=== PATIENT | female | born 1950 | race Caucasian/White ===

== ENCOUNTER 2017-04-05 08:35 | Observation (INO) | payer BC ==
[~2017-04-05] VITALS: Ht 162.6 cm; Wt 76.7 kg
[2017-04-05] VITALS (7 sets, daily range): BP systolic 128–143; BP diastolic 75–82; PULSE 58–70; TEMP 36.6; O2SAT 94–98; Ht 162.6 cm; Wt 76.7 kg
[~2017-04-05 08:35] MED LIST: EFFSR150 PO; LRT5 PO
[2017-04-05] MEDS ORDERED: SODIUM CHLORIDE 0.9% 500ML 500 ML IV STA (08:49)
[2017-04-05] MEDS ORDERED: EFFSR/75 PO (08:52)
[2017-04-05] MEDS ORDERED: ASPI81TA28 PO (08:52)
[2017-04-05] MEDS ORDERED: CALC600T9 PO (08:52)
[2017-04-05 08:57] LABS: BASO % 0.9 %; BASO ABS # 0.06 K/uL (0-0.2); COMPLETE YES; EOS % 3.9 %; IG% 0.1 %; LYMPH % 27.1 %; LYMPH ABS # 1.82 K/uL (1.2-3.4); MEAN CELL VOLUME 90.7 fL (80-100); MEAN CORPUSCULAR HEMOGLOBIN 30.5 pg (25-34); MEAN CORPUSCULAR HGB CONC 33.6 g/dl (32-36); MEAN PLATELET VOLUME 9.1 fL (7.4-10.4); MONO % 3.4 %; NEUT % 64.6 %; PLATELET COUNT 242 K/uL (130-400); RED BLOOD COUNT 4.85 M/uL (4.2-5.4); WHITE BLOOD COUNT 6.71 K/uL (4.8-10.8)
[2017-04-05 09:04] LABS: CALCIUM 9.3 mg/dl (8.5-10.1); CREATININE 1.2 mg/dl (0.60-1.20); POTASSIUM 3.5 mmol/L (3.5-5.1)
[2017-04-05 09:09] LABS: ALB/GLOB RATIO 1.1 (0.9-2)
--- NOTE | 2017-04-05 09:11 | EMERGENCY ROOM VISIT NOTE ---
History First contact with patient: 08:49 Chief Complaint: NAUSEA Stated Complaint: NAUSEA, DIZZY & FAINT Nursing Triage Summary: Nausea, lightheaded. History of Present Illness The patient is a 66 year old female who presents to the Emergency Room with complaints of palpitations and diaphoresis. Came on while walking, sudden onset palpitations, racing heart rate, had to sit down, associated chest pain, sweating (throughout) and nausea (for 1 minute). No shortness of breath. No loss of consciousness. No current chest pain. Did not take any medications. She didn't eat breakfast but usually skips breakfast and is fine. She has similar palpitations over at least the last 2 years. Last one was 2 days ago. Lately they have starting to come back but she can "get herself out of it" using ice on wrist and deep breaths. It usually lasts for 2 minutes. This is the first time with associated diaphoresis. No association to food or exertion. She walks one mile in the morning on most days of the week without any chest pain or shortness of breath. Review of Systems See HPI for pertinent positives & negatives. A total of 10 systems reviewed and were otherwise negative. 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) Current/Historical Medications Scheduled Aspirin (Aspirin Ec), 81 MG PO DAILY Calcium Carbonate-Vitamin D (Calcium + D), 1 TAB PO DAILY Venlafaxine HCl (Venlafaxine HCl ER), 150 MG PO DAILY Scheduled PRN Lorazepam (Lorazepam), 1 TAB PO DAILY PRN for Anxiety Allergies Coded Allergies: No Known Allergies (Unverified , 04/05/17) Physical Exam Vital Signs Date Time Temp Pulse Resp B/P (MAP) Pulse Ox O2 Delivery O2 Flow Rate FiO2 04/05/17 13:11 60 20 133/69 98 04/05/17 12:50 96 Room Air 04/05/17 12:43 67 18 122/79 96 Room Air 04/05/17 12:33 64 16 158/83 95 Room Air 04/05/17 12:03 62 20 118/75 99 Room Air 04/05/17 10:45 62 20 124/78 98 Room Air 04/05/17 10:00 62 20 100/68 97 Room Air 04/05/17 09:36 79 16 113/74 96 Room Air 04/05/17 09:15 85 16 126/82 95 Room Air 04/05/17 08:41 96 Room Air 04/05/17 08:40 93 04/05/17 08:37 36.7 104 20 141/79 97 Room Air Physical Exam VITAL SIGNS: were reviewed as above GENERAL: no acute distress SKIN: Warm dry and pink, no rashes HEAD: Normocephalic and atraumatic EYES: extraocular muscles intact, pupils equal and reactive to light OROPHARYNX: non erythematous, clear and moist NECK: Supple, no adenopathy LUNGS: No respiratory distress, clear to auscultation, no accessory muscle use HEART: Regular rate and rhythm, heart sounds 1+2, no murmurs, peripheral cap refill <2s ABDOMEN: Soft and nontender, bowel sounds normal EXTREMITIES: Warm and well perfused, no calf tenderness/swelling, no pedal edema. NEUROLOGICALLY: Awake alert and oriented without focal deficit. Cranial nerves 2 -12 intact. There is no facial droop. Speech is clear. Vision is grossly normal. MUSCULOSKELETAL: Good muscle tone. No evidence of trauma Medical Decision & Procedures ER Provider Diagnostic Interpretation: SINGLE VIEW CHEST CLINICAL HISTORY: Atypical chest pain. FINDINGS: An AP, portable, upright chest radiograph is obtained. No prior studies are available for comparison at the time of dictation. The examination is degraded by portable technique and patient rotation. The cardiomediastinal silhouette is unremarkable. There is minimal left basilar atelectasis. The lungs and pleural spaces are otherwise clear. No pneumothorax is seen. The skeletal structures are osteopenic. The bony thorax is grossly intact. IMPRESSION: No acute cardiopulmonary abnormality. Electronically signed by: Dimitris Mccabe M.D. 04/05/2017 10:59 AM Dictated Date/Time: 04/05/2017 10:58 AM Laboratory Results 04/05/17 08:11 Red Blood Count 4.85, Mean Corpuscular Volume 90.7, Mean Corpuscular Hemoglobin 30.5, Mean Corpuscular Hemoglobin Concent 33.6, Mean Platelet Volume 9.1, Neutrophils (%) (Auto) 64.6, Lymphocytes (%) (Auto) 27.1, Monocytes (%) (Auto) 3.4, Eosinophils (%) (Auto) 3.9, Basophils (%) (Auto) 0.9, Neutrophils # (Auto) 4.33, Lymphocytes # (Auto) 1.82, Monocytes # (Auto) 0.23, Eosinophils # (Auto) 0.26, Basophils # (Auto) 0.06 04/05/17 08:11 Test 04/05/17 08:11 04/05/17 11:27 04/05/17 12:30 White Blood Count 6.71 K/uL (4.8-10.8) Red Blood Count 4.85 M/uL (4.2-5.4) Hemoglobin 14.8 g/dL (12.0-16.0) Hematocrit 44.0 % (37-47) Mean Corpuscular Volume 90.7 fL (80-100) Mean Corpuscular Hemoglobin 30.5 pg (25-34) Mean Corpuscular Hemoglobin Concent 33.6 g/dl (32-36) Platelet Count 242 K/uL (130-400) Mean Platelet Volume 9.1 fL (7.4-10.4) Neutrophils (%) (Auto) 64.6 % Lymphocytes (%) (Auto) 27.1 % Monocytes (%) (Auto) 3.4 % Eosinophils (%) (Auto) 3.9 % Basophils (%) (Auto) 0.9 % Neutrophils # (Auto) 4.33 K/uL (1.4-6.5) Lymphocytes # (Auto) 1.82 K/uL (1.2-3.4) Monocytes # (Auto) 0.23 K/uL (0.11-0.59) Eosinophils # (Auto) 0.26 K/uL (0-0.5) Basophils # (Auto) 0.06 K/uL (0-0.2) RDW Standard Deviation 42.1 fL (36.4-46.3) RDW Coefficient of Variation 12.7 % (11.5-14.5) Immature Granulocyte % (Auto) 0.1 % Immature Granulocyte # (Auto) 0.01 K/uL (0.00-0.02) Prothrombin Time 10.2 SECONDS (9.0-12.0) Prothromb Time International Ratio 1.0 (0.9-1.1) Activated Partial Thromboplast Time 30.8 SECONDS (21.0-31.0) Partial Thromboplastin Ratio 1.2 D-Dimer < 190 ug/L FEU (0-500) Anion Gap 10.0 mmol/L (3-11) Est Creatinine Clear Calc Drug Dose 46.7 ml/min Estimated GFR () 55.3 Estimated GFR (Non- 47.7 BUN/Creatinine Ratio 8.0 (10-20) Estimated Average Glucose 114 mg/dl Hemoglobin A1c 5.6 % (4.5-5.6) Calcium Level 9.3 mg/dl (8.5-10.1) Total Bilirubin 0.5 mg/dl (0.2-1) Aspartate Amino Transf (AST/SGOT) 21 U/L (15-37) Alanine Aminotransferase (ALT/SGPT) 30 U/L (12-78) Alkaline Phosphatase 94 U/L (45-117) Total Protein 7.6 gm/dl (6.4-8.2) Albumin 3.9 gm/dl (3.4-5.0) Globulin 3.7 gm/dl (2.5-4.0) Albumin/Globulin Ratio 1.1 (0.9-2) Thyroid Stimulating Hormone (TSH) 2.340 uIu/ml (0.300-4.500) Bedside Troponin I 0.240 ng/ml (0-0.045) Troponin I 0.428 ng/ml (0-0.045) Medications Administered Medications (Trade) Dose Ordered Sig/Reji Route Start Time Stop Time Status Last Admin Dose Admin Sodium Chloride 500 ml @ 999 mls/hr Q31M STAT IV 04/05/17 08:49 04/05/17 09:19 DC 04/05/17 08:49 999 MLS/HR Aspirin (Aspirin Chew) 324 mg NOW STAT PO 04/05/17 09:19 04/05/17 09:20 DC 04/05/17 09:28 324 MG Nitroglycerin (Nitrostat Tab) 0.4 mg UD PRN SL 04/05/17 12:15 05/05/17 12:14 04/05/17 12:35 0.4 MG ECG Indication: chest pain Rate (beats per minute): 101 Findings: other (mild ST depressions in lateral leads, inferior q waves) ED Course 09:[address] Richards who separately performed history and examination 11:51 POC troponin elevated. Discussed with patient and referred to the [facility] Hospitalist service 12:[address] Mai (Cardiology) who will review the patient. Medical Decision Prior records/ancillary studies reviewed. Triage Nursing notes reviewed. Additional history obtained from patient and her son. The patient's history was concerning for palpitations but she was asymptomatic during her entire course in the ER. Differential diagnosis: Etiologies such as premature contractions, electrolyte abnormality, cardiac dysrhythmia, thyroid dysfunction, pulmonary embolism, infection, gastrointestinal, as well as others were entertained. Physical examination: Benign as above. ER treatment provided: Aspirin 324mg PO Diagnostic interpretation by me: The electrocardiogram as above showed non diagnostic but minor ST depression in lateral leads, q waves in inferior leads. No previous EKG for comparison. The labs revealed initial negative troponin but POC at 2 hours was elevated to 0.26 Imaging studies: Chest x-ray as above. Consultation: A consultation was placed with the [facility] hospitalist. The case was discussed and diagnostics were reviewed. The patient was evaluated in the ER for further treatment. Advised calling cardiology and adding d-dimer + POC troponin. A consultation was placed with the [facility] cardiology (DR Mai). The case was discussed and diagnostics were reviewed. The patient was evaluated in the ER for further treatment. This appears to be consistent with NSTEMI. By the evaluation outlined above emergent etiologies such as electrolyte abnormality, cardiac dysrhythmia, thyroid dysfunction, pulmonary embolism, infection, as well as others were deemed relatively unlikely. The patient and her were informed about the findings as listed above. All questions were answered. Impression Primary Impression: NSTEMI (non-ST elevated myocardial infarction) Departure Information Dispostion Being Evaluated By Hospitalist Condition GOOD Referrals Bi Montana D.O. (PCP) Patient Instructions My [facility]
[2017-04-05] MEDS ORDERED: ASPIRIN 324 MG CHEW PO STA (09:19)
--- NOTE | 2017-04-05 11:00 | DIAGNOSTIC IMAGING REPORT ---
SINGLE VIEW CHEST CLINICAL HISTORY: Atypical chest pain. FINDINGS: An AP, portable, upright chest radiograph is obtained. No prior studies are available for comparison at the time of dictation. The examination is degraded by portable technique and patient rotation. The cardiomediastinal silhouette is unremarkable. There is minimal left basilar atelectasis. The lungs and pleural spaces are otherwise clear. No pneumothorax is seen. The skeletal structures are osteopenic. The bony thorax is grossly intact. IMPRESSION: No acute cardiopulmonary abnormality. Electronically signed by: Dimitris Mccabe M.D. 04/05/2017 10:59 AM Dictated Date/Time: 04/05/2017 10:58 AM
[2017-04-05] MEDS ORDERED: LORA0.5T12 PO (12:15)
[2017-04-05] MEDS ORDERED: ENOXAPARIN 40 MG/0.4 ML SYR SC SCH (12:15)
[2017-04-05] MEDS ORDERED: LORAZEPAM 0.5 MG TAB PO PRN (12:15)
[2017-04-05] MEDS ORDERED: ACETAMINOPHEN 325 MG TAB PO PRN (12:15)
[2017-04-05] MEDS ORDERED: NITROGLYCERIN 0.4 MG SL PER TAB CHARGE SL PRN (12:15)
[2017-04-05] MEDS ORDERED: ONDANSETRON INJ 2 MG/ML 2 ML VIAL IV PRN (12:15)
[2017-04-05] MEDS ORDERED: IV FLUIDS COMPLETED PRN (12:30)
[2017-04-05] MEDS ORDERED: SODIUM CHLORIDE 0.9% 1000ML 1,000 ML IV SCH (12:30)
[2017-04-05 12:31] LABS: PARTIAL THROMBOPLASTIN RATIO 1.2; PROTHROMBIN TIME (PATIENT) 10.2 SECONDS (9.0-12.0)
--- NOTE | 2017-04-05 12:32 | EMERGENCY ROOM VISIT NOTE ---
ED Visit Note First contact with patient: 08:49 Resident Physician Supervision Note: I interviewed and examined the patient. Discussed with Dr. Nevarez and agree with findings and plan as documented in the note. Any exceptions or clarifications are listed here: [None] The patient had a near syncopal episode this morning associated with nausea and lightheadedness. 2 EKG's were performed revealing no acute ST changes. Troponin was elevated. The patient will require further evaluation in the hospital. Documented By: Remigio Richards
[2017-04-05 12:37] LABS: ESTIMATED AVERAGE GLUCOSE 114 mg/dl; HA1C FLAG Normal (Normal)
--- NOTE | 2017-04-05 12:42 | Progress Note ---
Progress Note Date of Service Apr 05, 2017. Progress Note ATTENDING ADDENDUM care coordinated with GIANCARLO Proctor please refer to her notes for full details, I agree with her notes patient seen and examined, records reviewed by myself as well on exam, patient seen with family at bedside appears somewhat anxious but comfortable overall reports she feels better than when she arrived at the ER has mild left chest discomfort, radiating to left shoulder and proximal arm denies active dyspnea, dizziness, palpitations, nausea no other symptoms PE. VS noted and reviewed General- oriented x 3, not in distress, speaks in sentences with no effort Head- atraumatic Eyes- EOMI, anicteric ENT- oropharynx clear Neck- supple, no JVD, no adenopathy, no thyromegaly Lungs- clear breath sounds bilaterally Heart- regular rhythm; no murmur, normal rate Abdomen- normal bowel sounds, soft, nontender Extremities- no pretibial edema, no calf tenderness; peripheral pulses intact Neuro- alert, oriented x 3; no gross focal neuro deficits Skin- warm & dry trop 0.026 crea 1.2 D dimer < 190 repeat ekg at 12:27pm :HR 64, sinus rhythm, non specific t wave changes lead 3 ASSESSMENT/PLAN> EPISODE OF PALPITATIONS r/o ACS risk factors: history of smoking, father- acute GA at age 50s trop 0.2, EKG non specific t wave changes in lead 3 follow cardiac markers, echo trial of SL nitro NPO for now already on Aspirin consult Cardio r/o Tachyarrhythmia Telemetry monitoring other diagnoses and plan of care as per GIANCARLO Turner MD
[2017-04-05] MEDS ORDERED: HEPARIN 25,000 UNIT/500ML D5W 500 ML IV PRN (14:30)
--- NOTE | 2017-04-05 14:34 | History and Physical ---
History & Physical Date & Time of Service: Apr 05, 2017 ~ 12:15 Chief Complaint: Palpitations, Near Syncope Primary Care Physician: Bi Montana D.ONéstor History of Present Illness Patient seen with Dr. Turner 66 year old female who presents to the ER with palpitations and a near syncope. Patient works at a senior care as a nurse's aide. 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 She reports symptoms lasted for about an hour. She reports intermittent episodes of palpitations over the past couple of years. She reports under going a stress test several years ago that was negative. While in the ED, she is reporting left sided chest discomfort that is radiating into the left shoulder. She was given nitro and is currently chest pain free. Of note, patient walks 1 mile before work every morning without difficulty. She denies any associated shortness of breath. She denies any recent illnesses, fever, or chills. No abdominal pain, vomiting, or diarrhea. She denies any urinary symptoms. In the ER, patient's EKG shows minimal (< 1mm) ST depressions laterally that improved on 2nd EKG once HR slowed down. Trop 0.026 -> POC trop 0.24 -> 0.428. Patient was given full dose ASA. 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) Immunizations History of Influenza Vaccine: Yes Influenza Vaccine Date: Aug 06, 2016 History of Tetanus Vaccine?: Yes Tetanus Immunization Date: Aug 04, 2010 History of Pneumococcal: Yes Pneumococcal Date: Jul 31, 2005 Multi-Drug Resistant Organisms History of MDRO: No Allergies Coded Allergies: No Known Allergies (Unverified , 04/05/17) Home Medications Scheduled Aspirin (Aspirin Ec), 81 MG PO DAILY Calcium Carbonate-Vitamin D (Calcium + D), 1 TAB PO DAILY Venlafaxine HCl (Venlafaxine HCl ER), 150 MG PO DAILY Scheduled PRN Lorazepam (Lorazepam), 1 TAB PO DAILY PRN for Anxiety Review of Systems Constitutional- no fever; no weight loss Eyes- no acute visual changes ENT- no sinus drainage; no pharyngitis Pulmonary- no cough, no wheezing, no shortness of breath Cardiac-(+) as noted above GI- no nausea, no vomiting, no diarrhea, no melena, no hematochezia - no dysuria, no hematuria Musculoskeletal- no arthralgias, no myalgias Derm- no rashes, no new skin lesions, no changing skin lesions Hematologic- no unusual bruising, no unusual bleeding Lymphatics- no adenopathy Endocrine- no polyuria or polydipsia; no heat or cold intolerance Neuro- no headaches, no focal neurologic symptoms Psych- no anxiety, no depression Physical Exam Vital Signs Date Time Temp Pulse Resp B/P (MAP) Pulse Ox O2 Delivery O2 Flow Rate FiO2 04/05/17 13:11 60 20 133/69 98 04/05/17 12:50 36.6 63 20 128/82 96 Room Air 04/05/17 12:43 67 18 122/79 96 Room Air 04/05/17 12:33 64 16 158/83 95 Room Air 04/05/17 12:03 62 20 118/75 99 Room Air 04/05/17 10:45 62 20 124/78 98 Room Air 04/05/17 10:00 62 20 100/68 97 Room Air 04/05/17 09:36 79 16 113/74 96 Room Air 04/05/17 09:15 85 16 126/82 95 Room Air 04/05/17 08:41 96 Room Air 04/05/17 08:40 93 04/05/17 08:37 36.7 104 20 141/79 97 Room Air please refer to Dr. Turner's note for physical exam Diagnostics Laboratory Results Results Past 24 Hours Test 04/05/17 08:11 04/05/17 11:27 04/05/17 12:30 Range/Units White Blood Count 6.71 4.8-10.8 K/uL Red Blood Count 4.85 4.2-5.4 M/uL Hemoglobin 14.8 12.0-16.0 g/dL Hematocrit 44.0 37-47 % Mean Corpuscular Volume 90.7 80-100 fL Mean Corpuscular Hemoglobin 30.5 25-34 pg Mean Corpuscular Hemoglobin Concent 33.6 32-36 g/dl Platelet Count 242 130-400 K/uL Mean Platelet Volume 9.1 7.4-10.4 fL Neutrophils (%) (Auto) 64.6 % Lymphocytes (%) (Auto) 27.1 % Monocytes (%) (Auto) 3.4 % Eosinophils (%) (Auto) 3.9 % Basophils (%) (Auto) 0.9 % Neutrophils # (Auto) 4.33 1.4-6.5 K/uL Lymphocytes # (Auto) 1.82 1.2-3.4 K/uL Monocytes # (Auto) 0.23 0.11-0.59 K/uL Eosinophils # (Auto) 0.26 0-0.5 K/uL Basophils # (Auto) 0.06 0-0.2 K/uL RDW Standard Deviation 42.1 36.4-46.3 fL RDW Coefficient of Variation 12.7 11.5-14.5 % Immature Granulocyte % (Auto) 0.1 % Immature Granulocyte # (Auto) 0.01 0.00-0.02 K/uL Prothrombin Time 10.2 9.0-12.0 SECONDS Prothromb Time International Ratio 1.0 0.9-1.1 Activated Partial Thromboplast Time 30.8 21.0-31.0 SECONDS Partial Thromboplastin Ratio 1.2 D-Dimer < 190 0-500 ug/L FEU Sodium Level 141 136-145 mmol/L Potassium Level 3.5 3.5-5.1 mmol/L Chloride Level 104 98-107 mmol/L Carbon Dioxide Level 27 21-32 mmol/L Anion Gap 10.0 3-11 mmol/L Blood Urea Nitrogen 10 7-18 mg/dl Creatinine 1.20 0.60-1.20 mg/dl Est Creatinine Clear Calc Drug Dose 46.7 ml/min Estimated GFR () 55.3 Estimated GFR (Non- 47.7 BUN/Creatinine Ratio 8.0 10-20 Random Glucose 147 70-99 mg/dl Estimated Average Glucose 114 mg/dl Hemoglobin A1c 5.6 4.5-5.6 % Calcium Level 9.3 8.5-10.1 mg/dl Total Bilirubin 0.5 0.2-1 mg/dl Aspartate Amino Transf (AST/SGOT) 21 15-37 U/L Alanine Aminotransferase (ALT/SGPT) 30 12-78 U/L Alkaline Phosphatase 94 45-117 U/L Troponin I 0.026 0.428 0-0.045 ng/ml Total Protein 7.6 6.4-8.2 gm/dl Albumin 3.9 3.4-5.0 gm/dl Globulin 3.7 2.5-4.0 gm/dl Albumin/Globulin Ratio 1.1 0.9-2 Thyroid Stimulating Hormone (TSH) 2.340 0.300-4.500 uIu/ml Bedside Troponin I 0.240 0-0.045 ng/ml Creatine Kinase MB 2.7 0.5-3.6 ng/ml Creatine Kinase MB Ratio 0-3.0 Diagnostic Radiology CXR IMPRESSION: No acute cardiopulmonary abnormality. EKG sinus rhythm, no signs of acute ischemia/infarct Impression Assessment and Plan PALPITATIONS, NEAR SYNCOPE, R/O ACS - admit to tele - patient presenting with palpitations, diaphoresis, nausea, and lightheadedness - episode lasted for about one hour; in the ED, reporting left sided chest discomfort that was relieved with nitro - initial EKG shows minimal ST depressions laterally (< 1mm) and sinus tachycardia; repeat EKG NSR, ST depressions resolved - trop 0.026 -> POC trop 0.24 -> 0.428; D. dimer negative - also consider tachyarrhythmia - risk factors: former smoker, + family history - will start IV heparin and atorvastatin 80mg, continue ASA - resting echo - cardio consult DEPRESSION - continue venlafaxine DVT PROPHYLAXIS - on heparin gtt DISPO - The patient will be placed as observation status for now until further work up is complete. Advanced Directives Existing Living Will: No Existing Power of Advanced Practice Professional: No VTE Prophylaxis VTE Risk Assessment Done? Y/N: Yes Risk Level: Moderate Given or contraindicated: Unfractionated heparin SQ
--- NOTE | 2017-04-05 15:03 | Cardiology Consultation ---
Cardiology Consultation History of Present Illness Patient is a 66 year old female presented with complaint of palpitations early today. States that while walking the hallway at work suddenly felt her heart start to race. This is not a new symptoms, however, always spontaneously resolved after a minute or two. However, this episode persisted. After several minutes she developed some substernal chest heaviness, this is typically occurs with her palpitations. Symptoms lasted for about and hour and resolved after EMS brought her to the ER. No arrhythmias in ER. Currently without symptoms. History Past Surgical History: COLONOSCOPY W/ BIOPSY (RECTUM) 07/16/07 adenomatous repeat in 3 yrs COLONOSCOPY W/ LESION REMOVAL, SNARE 07/16/07 path pending COLONOSCOPY W/ LESION REMOVAL, SNARE 03/22/11 Adenomatous polyp& few diverticulosis COLONOSCOPY W/ SUBMUCOUS INJ 07/16/07 COLONOSCOPY, DIAGNOSTIC (RECTUM) 03/23/2016 diverticulosis, repeat 5 yrs Social History: remote tobacco use, denies alcohol or recreational drug use. 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 Head: The patient denies headache and prior head trauma. Cardiovascular: The patient denies chest pain or chest discomfort, dyspnea on exertion, palpitations, PND, orthopnea, edema, spontaneous shortness of breath, syncope and near syncope. Pulmonary: The patient denies cough, wheeze, pleurisy, hemoptysis, sputum, and excessive snoring. Gastrointestinal: The patient denies nausea, vomiting, diarrhea, constipation, bloating, hematemesis, hematochezia, and abdominal pain. Skin: The patient denies diaphoresis and rash. Musculoskeletal: The patient denies joint pain, joint swelling, myalgia, back pain, neck pain and prior injuries. Neurological: The patient denies prior stroke and seizures Allergies Coded Allergies: No Known Allergies (Unverified , 04/05/17) Medications Reported Home Medications Medications Dose Route/Sig Max Daily Dose Days Date Category Lorazepam 0.5 Mg Tab 1 Tab PO DAILY PRN 30 04/05/17 Reported Calcium + D (Calcium Carbonate-Vitamin D) 1 Tab Tab 1 Tab PO DAILY 04/05/17 Reported Aspirin Ec (Aspirin) 81 Mg Tab 81 Mg PO DAILY 04/05/17 Reported Venlafaxine HCl ER (Venlafaxine HCl) 75 Mg Capcr 150 Mg PO DAILY 04/05/17 Reported Physical Exam Vital Signs (Last 8hrs): Last 8 Hrs Date Time Temp Pulse Resp B/P (MAP) Pulse Ox O2 Delivery O2 Flow Rate FiO2 04/05/17 13:11 60 20 133/69 98 04/05/17 12:50 36.6 63 20 128/82 96 Room Air 04/05/17 12:43 67 18 122/79 96 Room Air 04/05/17 12:33 64 16 158/83 95 Room Air 04/05/17 12:03 62 20 118/75 99 Room Air 04/05/17 10:45 62 20 124/78 98 Room Air 04/05/17 10:00 62 20 100/68 97 Room Air 04/05/17 09:36 79 16 113/74 96 Room Air 04/05/17 09:15 85 16 126/82 95 Room Air 04/05/17 08:41 96 Room Air 04/05/17 08:40 93 04/05/17 08:37 36.7 104 20 141/79 97 Room Air General Appearance: Alert and Oriented x3. NAD. Head: Normocephalic Atraumatic. Eyes: PERRLA, EOMI, conjunctiva and sclera clear Neck: Supple. No carotid bruits noted. No JVD. No HJD. Respiratory: Breath sounds clear to auscultation bilaterally. No w/r/r. Cardiovascular: Reg rate and rhythm. S1 and S2 noted. No murmurs, rubs, gallops. PMI non displace. Abdomen: Normal bowel sounds, soft nontender. no abdominal bruits. Extremities: No edema, no clubbing or cyanosis. distal pulses 2/4 bilaterally. Neuro: No focal deficits. Psychiatric: Normal affect. Data Last 24 Hours Test 04/05/17 08:11 04/05/17 11:27 04/05/17 12:30 White Blood Count 6.71 K/uL Red Blood Count 4.85 M/uL Hemoglobin 14.8 g/dL Hematocrit 44.0 % Mean Corpuscular Volume 90.7 fL Mean Corpuscular Hemoglobin 30.5 pg Mean Corpuscular Hemoglobin Concent 33.6 g/dl Platelet Count 242 K/uL Mean Platelet Volume 9.1 fL Neutrophils (%) (Auto) 64.6 % Lymphocytes (%) (Auto) 27.1 % Monocytes (%) (Auto) 3.4 % Eosinophils (%) (Auto) 3.9 % Basophils (%) (Auto) 0.9 % Neutrophils # (Auto) 4.33 K/uL Lymphocytes # (Auto) 1.82 K/uL Monocytes # (Auto) 0.23 K/uL Eosinophils # (Auto) 0.26 K/uL Basophils # (Auto) 0.06 K/uL RDW Standard Deviation 42.1 fL RDW Coefficient of Variation 12.7 % Immature Granulocyte % (Auto) 0.1 % Immature Granulocyte # (Auto) 0.01 K/uL Prothrombin Time 10.2 SECONDS Prothromb Time International Ratio 1.0 Activated Partial Thromboplast Time 30.8 SECONDS Partial Thromboplastin Ratio 1.2 D-Dimer < 190 ug/L FEU Sodium Level 141 mmol/L Potassium Level 3.5 mmol/L Chloride Level 104 mmol/L Carbon Dioxide Level 27 mmol/L Anion Gap 10.0 mmol/L Blood Urea Nitrogen 10 mg/dl Creatinine 1.20 mg/dl Est Creatinine Clear Calc Drug Dose 46.7 ml/min Estimated GFR () 55.3 Estimated GFR (Non- 47.7 BUN/Creatinine Ratio 8.0 Random Glucose 147 mg/dl Estimated Average Glucose 114 mg/dl Hemoglobin A1c 5.6 % Calcium Level 9.3 mg/dl Total Bilirubin 0.5 mg/dl Aspartate Amino Transf (AST/SGOT) 21 U/L Alanine Aminotransferase (ALT/SGPT) 30 U/L Alkaline Phosphatase 94 U/L Troponin I 0.026 ng/ml 0.428 ng/ml Total Protein 7.6 gm/dl Albumin 3.9 gm/dl Globulin 3.7 gm/dl Albumin/Globulin Ratio 1.1 Thyroid Stimulating Hormone (TSH) 2.340 uIu/ml Bedside Troponin I 0.240 ng/ml Total Creatine Kinase 74 U/L Creatine Kinase MB 2.7 ng/ml Creatine Kinase MB Ratio Imaging: EKG:nsr without ischemic changes, poor R wave progression across precordium Telemetry reviewed: sinus rhythm without arrhythmia. Assessment & Plan 1. palpitations unclear etiology possibly paroxysmal atrial tachycardia by description presenting EKG unremarkable blood work with slight hypokalemia minimal trop, doubt ischemic will monitor on tele check echo if all above unremarkable, stress in AM no medications at this time
[2017-04-05] MEDS: ATORVASTATIN 40 MG TAB PO SCH (15:44)
--- NOTE | 2017-04-05 16:11 | ECHOCARDIOGRAM REPORT ---
*NOTICE TO RECEIVING REPUBLICAN AGENCY This information is strictly Confidential and protected under [place] law. [place] law prohibits you from making any further disclosure of this information unless further disclosure is expressly permitted by the written consent of the person to whom it pertains or is authorized by law. A general authorization for the release of medical or other information is not sufficient for this purpose. Hospital accepts no responsibility if the information is made available to any other person, INCLUDING THE PATIENT. Interpretation Summary * Name: RADHA MEIER Study Date: 04/05/2017 02:32 PM BP: 122/79 mmHg * Patient Location: [facility] HR: 67 * : 1950 (M/d/yyyy) Gender: Female Height: 64 in * Age: 66 yrs Ethnicity: CA Weight: 162 lb * Ordering Physician: Isis Proctor * Performed By: Deysi Elizabeth * * Reason For Study: PALPITATIONS * BSA: 1.8 m2 * -- Conclusions -- * Normal LV chamber size with mild concentric LVH. * Hyperdynamic LV systolic function, EF >70%. * No segmental left ventricular wall motion abnormalities are noted. * Grade I diastolic dysfunction. * No significant valvular pathology. Procedure Details * A complete two-dimensional transthoracic echocardiogram was performed (2D, M-mode, Doppler and color flow Doppler). Left Ventricle * The left ventricle is normal in size. * There is mild concentric left ventricular hypertrophy. * Ejection Fraction = >70 %. * Left ventricular systolic function is normal. * No segmental left ventricular wall motion abnormalities are noted. * The left ventricular wall motion is normal. Right Ventricle * The right ventricular cavity size is normal (basal dimension <4.2 cm in right ventricular apical 4-chamber view). * The right ventricular systolic function is normal as assessed by tricuspid annular plane systolic excursion (TAPSE) (normal >1.5 cm). Atria * The left atrial size is normal. * Right atrial size is normal. * No ASD detected; PFO is not assessed. Mitral Valve * The mitral valve is normal in structure and function. Tricuspid Valve * The tricuspid valve is normal in structure and function. Aortic Valve * The aortic valve is normal in structure and function. Pulmonic Valve * The pulmonary valve is not well seen, but the Doppler examination is normal without significant regurgitation or stenosis. Great Vessels * The aortic root is normal size. Pericardium/Pleural * There is no pericardial effusion. Left Ventricular Diastolic Function * Grade I diastolic dysfunction, (abnormal relaxation pattern). MMode 2D Measurements and Calculations IVSd 1.6 cm IVSs 2.3 cm LVIDd 3.9 cm LVIDs 2.2 cm LVPWd 1.2 cm LVPWs 1.6 cm IVS/LVPW 1.4 FS 42.3 % EDV(Teich) 65.8 ml ESV(Teich) 17.1 ml EF(Teich) 74.0 % EDV(cubed) 59.2 ml ESV(cubed) 11.4 ml EF(cubed) 80.8 % % IVS thick 37.6 % % LVPW thick 40.6 % LV mass(C)d 202.2 grams LV mass(C)dI 113.1 grams/m\S\2 LV mass(C)s 184.6 grams LV mass(C)sI 103.2 grams/m\S\2 CO(Teich) 2.7 l/min CI(Teich) 1.5 l/min/m\S\2 SV(Teich) 48.6 ml SI(Teich) 27.2 ml/m\S\2 CO(cubed) 2.6 l/min CI(cubed) 1.5 l/min/m\S\2 SV(cubed) 47.8 ml SI(cubed) 26.7 ml/m\S\2 ACS 1.4 cm LA dimension 3.0 cm asc Aorta Diam 2.7 cm LVOT diam 1.7 cm LVOT area 2.2 cm\S\2 LVAd ap4 26.1 cm\S\2 LVLd ap4 7.8 cm EDV(MOD-sp4) 71.1 ml LVAs ap4 11.1 cm\S\2 LVLs ap4 6.0 cm ESV(MOD-sp4) 17.6 ml EF(MOD-sp4) 75.2 % LVAd ap2 20.8 cm\S\2 LVLd ap2 7.0 cm EDV(MOD-sp2) 51.5 ml LVAs ap2 9.0 cm\S\2 LVLs ap2 5.7 cm ESV(MOD-sp2) 13.2 ml EF(MOD-sp2) 74.4 % CO(MOD-sp4) 2.9 l/min CI(MOD-sp4) 1.6 l/min/m\S\2 SV(MOD-sp4) 53.5 ml SI(MOD-sp4) 29.9 ml/m\S\2 CO(MOD-sp2) 2.1 l/min CI(MOD-sp2) 1.2 l/min/m\S\2 SV(MOD-sp2) 38.3 ml SI(MOD-sp2) 21.4 ml/m\S\2 Doppler Measurements and Calculations MV E max angelita 56.8 cm/sec MV A max angelita 81.7 cm/sec MV E/A 0.69 MV dec time 0.21 sec Ao V2 max 112.5 cm/sec Ao max PG 5.1 mmHg Ao max PG (full) 1.2 mmHg SONJA(V,A) 1.9 cm\S\2 SONJA(V,D) 1.9 cm\S\2 LV V1 max PG 3.9 mmHg LV V1 max 98.6 cm/sec PA V2 max 57.6 cm/sec PA max PG 1.3 mmHg PI end-d angelita 62.1 cm/sec
[2017-04-05 21:50] LABS: PARTIAL THROMBOPLASTIN RATIO 3.6
[2017-04-06] VITALS (8 sets, daily range): BP systolic 102–149; BP diastolic 64–81; PULSE 54–66; TEMP 36.5–36.9; O2SAT 94–98
[2017-04-06 04:15] LABS: WHITE BLOOD COUNT 6.79 K/uL (4.8-10.8)
[2017-04-06 04:16] LABS: HEMATOCRIT 37.6 % (37-47); MEAN CELL VOLUME 92.2 fL (80-100); MEAN CORPUSCULAR HEMOGLOBIN 30.1 pg (25-34); MEAN CORPUSCULAR HGB CONC 32.7 g/dl (32-36); MEAN PLATELET VOLUME 9.1 fL (7.4-10.4); PLATELET COUNT 181 K/uL (130-400); RED BLOOD COUNT 4.08 M/uL (4.2-5.4)
[2017-04-06 04:37] LABS: PARTIAL THROMBOPLASTIN RATIO 2.2
[2017-04-06 04:51] LABS: BUN/CREATININE RATIO 15.6 (10-20); CALCIUM 8.5 mg/dl (8.5-10.1); CHOLESTEROL/HDL RATIO 3.6; CREATININE 0.78 mg/dl (0.60-1.20); POTASSIUM 3.8 mmol/L (3.5-5.1)
[2017-04-06] MEDS: ATORVASTATIN 40 MG TAB PO SCH (08:13)
[2017-04-06] MEDS ORDERED: CALCIUM 600MG + VIT D 400 IU TAB PO SCH (09:00)
[2017-04-06] MEDS ORDERED: ASPIRIN 81 MG ECTAB PO SCH (09:00)
[2017-04-06] MEDS ORDERED: VENLAFAXINE HCL XR 150 MG CAPXR PO SCH (09:00)
--- NOTE | 2017-04-06 14:08 | Cardiology Follow-Up ---
Subjective Subjective Date of Service: Apr 06, 2017. Pt evaluation today including: conversation w/ patient, physical exam, chart review, lab review, review of studies, review of inpatient medication list Additional Details: Pt seen and examined, states that she feels well. No recurrence of palpitations or chest discomfort overnight. Denies sob, lightheadedness or dizziness. Tele reviewed: sinus rhythm without arrhythmia or significant ectopy. Review of Systems Respiratory: No see HPI, No cough, No sputum, No wheezing, No shortness of breath, No dyspnea on exertion, No dyspnea at rest, No hemoptysis, No problem reported Cardiac: No see HPI, No chest pain, No orthopnea, No PND, No edema, No claudication, No palpitations, No problem reported Objective Vital Signs Last Vital Signs Documentation Date Time Temp Pulse Resp B/P (MAP) Pulse Ox O2 Delivery O2 Flow Rate FiO2 04/06/17 12:28 36.9 54 20 96 Room Air 04/06/17 11:10 143/81 (101) Physical Exam: General Appearance: WD/WN, no apparent distress Eyes: bilateral eyes normal inspection, bilateral eyes PERRL, bilateral eyes EOMI ENT: normal ENT inspection, hearing grossly normal, pharynx normal Neck: supple, no adenopathy, thyroid normal, no JVD, no carotid bruits, trachea midline Respiratory/Chest: chest non-tender, lungs clear, normal breath sounds, no respiratory distress, no accessory muscle use Cardiovascular: regular rate, rhythm, no edema, no gallop, no JVD, no murmur Abdomen: soft, no organomegaly, no pulsatile mass Extremities: normal range of motion, non-tender, normal inspection, no pedal edema, no calf tenderness Neurologic/Psychiatric: oil rag washer II-XII nml as tested, no motor/sensory deficits, alert, normal mood/affect, oriented x 3 Skin: normal color, warm/dry, no rash Lymphatic: no adenopathy Assessment and Plan 1. palpitations unclear etiology possibly paroxysmal atrial tachycardia by description presenting EKG unremarkable blood work with slight hypokalemia minimal trop, doubt ischemic will monitor on tele 2. chest discomfort no recurrence stress test nonischemic with severely hypertensive bp response believe hypertensive urgency to be the likely culprit of symptoms start amlodipine 2.5mg daily f/u with pcp as outpatient for further management no cardiac follow up necessary at this time ok to d/c to home
--- NOTE | 2017-04-06 15:20 | Progress Note ---
Medicine Progress Note Date & Time of Visit: Apr 06, 2017 at 15:20 . Subjective Feels well. No chest pain, palpitations, SOB. Treadmill stress echo performed. No stress-induced ischemia, but had severe hypertension in response to exercise. . Objective Last 8 Hrs Date Time Temp Pulse Resp B/P (MAP) Pulse Ox O2 Delivery O2 Flow Rate FiO2 04/06/17 12:28 36.9 54 20 96 Room Air 04/06/17 12:00 Room Air 04/06/17 11:10 143/81 (101) 04/06/17 08:30 Room Air 04/06/17 08:22 66 04/06/17 07:47 36.9 20 127/75 (92) 94 Room Air Physical Exam: General- no distress Neck- no JVD Lungs- clear Heart- RRR Abdomen- + BS, soft, nontender Extremities- no pretibial edema or calf tenderness Neuro- alert . Laboratory Results: Last 24 Hours Test 04/05/17 18:00 04/05/17 18:26 04/05/17 21:20 04/06/17 00:00 Creatine Kinase MB Ratio Creatine Kinase MB 3.2 ng/ml Troponin I 0.334 ng/ml Activated Partial Thromboplast Time 92.3 SECONDS Partial Thromboplastin Ratio 3.6 Test 04/06/17 00:49 04/06/17 04:02 Creatine Kinase MB 2.3 ng/ml Troponin I 0.177 ng/ml White Blood Count 6.79 K/uL Red Blood Count 4.08 M/uL Hemoglobin 12.3 g/dL Hematocrit 37.6 % Mean Corpuscular Volume 92.2 fL Mean Corpuscular Hemoglobin 30.1 pg Mean Corpuscular Hemoglobin Concent 32.7 g/dl RDW Standard Deviation 43.5 fL RDW Coefficient of Variation 12.8 % Platelet Count 181 K/uL Mean Platelet Volume 9.1 fL Activated Partial Thromboplast Time 58.0 SECONDS Partial Thromboplastin Ratio 2.2 Sodium Level 145 mmol/L Potassium Level 3.8 mmol/L Chloride Level 111 mmol/L Carbon Dioxide Level 27 mmol/L Anion Gap 7.0 mmol/L Blood Urea Nitrogen 12 mg/dl Creatinine 0.78 mg/dl Est Creatinine Clear Calc Drug Dose 71.8 ml/min Estimated GFR () 93.1 Estimated GFR (Non- 80.3 BUN/Creatinine Ratio 15.6 Random Glucose 102 mg/dl Calcium Level 8.5 mg/dl Triglycerides Level 107 mg/dl Cholesterol Level 172 mg/dl HDL Cholesterol 48 mg/dl LDL Cholesterol, Calculated 103 mg/dl VLDL Cholesterol, Calculated 21 mg/dl Cholesterol/HDL Ratio 3.6 Assessment & Plan PALPITATIONS No arrhythmias noted on property assessment monitor. Consider outpatient cardiac event monitor if symptoms recur. CHEST DISCOMFORT Minimal elevation of troponin. No wall motion abnormalities on rest echo. No stress-induced ischemia on stress echo. HYPERTENSION Severe hypertensive response to exercise. Echo showed mild concentric LVH. Bradycardiac at times. Amlodipine 2.5 mg daily recommended. VTE PROPHYLAXIS Received IV heparin. DISPOSITION Discharge to home. Internal Medicine follow-up with Dr. Montana. Consultants: cardiology . Procedures: cardiac monitoring rest echo treadmill stress echo . Current Inpatient Medications: Current Inpatient Medications Medications (Trade) Dose Ordered Sig/Reji Route Start Time Stop Time Status Last Admin Dose Admin Acetaminophen (Tylenol Tab) 650 mg Q4H PRN PO 04/05/17 12:15 05/05/17 12:14 Ondansetron HCl (Zofran Inj) 4 mg Q6H PRN IV 04/05/17 12:15 05/05/17 12:14 Nitroglycerin (Nitrostat Tab) 0.4 mg UD PRN SL 04/05/17 12:15 05/05/17 12:14 04/05/17 12:35 0.4 MG Aspirin (Ecotrin Tab) 81 mg QAM PO 04/06/17 09:00 05/06/17 08:59 04/06/17 08:13 81 MG Lorazepam (Ativan Tab) 0.5 mg DAILY PRN PO 04/05/17 12:15 05/05/17 12:14 Venlafaxine HCl (effeXOR EXTENDED REL CAP) 150 mg DAILY PO 04/06/17 09:00 05/06/17 08:59 04/06/17 08:13 150 MG Calcium/Vitamin D (Caltrate Plus Tab) 1 tab DAILY PO 04/06/17 09:00 05/06/17 08:59 04/06/17 08:13 1 TAB Atorvastatin Calcium (Lipitor Tab) 80 mg QAM PO 04/05/17 13:45 05/05/17 13:44 04/06/17 08:13 80 MG Miscellaneous (Iv Fluids Completed) 1 ea PRN PRN N/A 04/05/17 12:30 04/05/18 12:29 Heparin Sodium/ Dextrose 500 ml @ 20 mls/hr Q24H PRN IV 04/05/17 14:30 05/05/17 14:29 04/05/17 15:43 22 MLS/HR
[2017-04-06] MEDS ORDERED: AMLO2.5T PO (15:24)
--- NOTE | 2017-04-06 15:29 | Discharge Instructions ---
Discharge Instructions Date of Service Apr 06, 2017. Admission Reason for Admission: lightheadedness, palpitations . Discharge Discharge Diagnosis / Problem: high blood pressure with exercise Discharge Goals Goal(s): Improve function Activity Recommendations Activity Limitations: resume your previous activity . Instructions / Follow-Up Instructions / Follow-Up APPOINTMENTS: INTERNAL MEDICINE 04/12/2017 4:20 PM Bi Montana, DO INSTRUCTIONS: There was no sign of a heart attack. Your blood pressure was pretty high during the stress test. Dr. Mai recommends starting amlodipine (Norvasc) for blood pressure. Prescription sent to your pharmacy. If you continue to have palpitations or spells of dizziness, let Dr. Montana know. He can order an outpatient cardiac event monitor for you. Seek medical attention if you have: * chest pain or trouble breathing * severe / prolonged palpitations * severe dizziness or lightheadedness * any unanswered questions or concerns Call 911 if symptoms are severe. Call if you have any questions or problems. My cell # is [phone]. You can also reach a [facility] hospitalist on duty at [facility] 24 hours a day by calling [phone]. Please take good care of yourself. Joss Post . Current Hospital Diet Patient's current hospital diet: AHA Diet (Heart Healthy) Discharge Diet Recommended Diet: AHA Diet (Heart Healthy) Pending Studies Studies pending at discharge: no Laboratory Results Hemoglobin A1c Test 04/05/17 08:11 Range/Units Estimated Average Glucose 114 mg/dl Hemoglobin A1c 5.6 4.5-5.6 % Lipid Panel Test 04/06/17 04:02 Range/Units Triglycerides Level 107 0-150 mg/dl Cholesterol Level 172 0-200 mg/dl HDL Cholesterol 48 mg/dl Cholesterol/HDL Ratio 3.6 LDL Cholesterol, Calculated 103 mg/dl Medical Emergencies . Who to Call and When: Medical Emergencies: If at any time you feel your situation is an emergency, please call 911 immediately. . Non-Emergent Contact Non-Emergency issues call your: Primary Care Provider, Hospital Doctor . . "Provider Documentation" section prepared by Joss Post. . VTE Core Measure Inpt VTE Proph given/why not?: Unfractionated heparin SQ
--- NOTE | 2017-04-06 16:21 | EXERCISE STRESS ECHO ---
*NOTICE TO RECEIVING DEMOCRAT AGENCY This information is strictly Confidential and protected under [place] law. [place] law prohibits you from making any further disclosure of this information unless further disclosure is expressly permitted by the written consent of the person to whom it pertains or is authorized by law. A general authorization for the release of medical or other information is not sufficient for this purpose. Hospital accepts no responsibility if the information is made available to any other person, INCLUDING THE PATIENT. Interpretation Summary * Name: RADHA MEIER Study Date: 04/06/2017 12:53 PM BP: 152/88 mmHg * Patient Location: C.2T\S\S240\S\1 HR: 61 * : 1950 (M/d/yyy) Gender: Female Height: 64 in * Age: 66 yrs Ethnicity: [place] Weight: 169 lb * Ordering Physician: Mando Mai * Referring Physician: Self, Referred * Performed By: Ange Evans RDCS * * Reason For Study: CHEST PAIN * BSA: 1.8 m2 * -- Conclusions -- * Nonischemic exercise stress echocardiogram. * No arrhythmia. * Markedly hypertensive BP response to exercise. * Below average exercise tolerance. Procedure Details * ECHOEX, CPT #85914 Stress Parameters * The stress portion of this study was personally supervised by the undersigned interpreting physician. * Rest heart rate was '61' BPM. * Rest blood pressure was '152/88' * Maximum heart rate achieved was 142 bpm. * Maximum heart rate was 91 % of maximum age-predicted heart rate. * Maximum blood pressure was '250/96' * Total exercise time was '5:39' * Maximum exercise MET level achieved was '7.00' METS * Maximum treadmill speed was '2.50' miles per hour. * Maximum treadmill elevation was '12.00'% grade. * Exercise was terminated due to 'ACHIEVING TARGET HR'
--- NOTE | 2017-04-07 19:48 | Discharge Summary ---
Discharge Summary Date of Service Apr 07, 2017. Discharge Summary Admission Date: Apr 05, 2017 at 12:11 Discharge Date: Apr 06, 2017 Discharge Disposition: Home Principal Diagnosis: palpitations hypertensive response to exercise . Secondary Diagnoses/Problems: Procedures: cardiac monitoring rest echo treadmill stress echo . Consultations: cardiology . Medication Reconciliation New Medications: Amlodipine Besylate (Norvasc) 2.5 Mg Tab 2.5 MG PO DAILY, #30 TAB 5 Refills Continued Medications: Aspirin (Aspirin Ec) 81 Mg Tab 81 MG PO DAILY Calcium Carbonate-Vitamin D (Calcium + D) 1 Tab Tab 1 TAB PO DAILY Lorazepam (Lorazepam) 0.5 Mg Tab 1 TAB PO DAILY PRN for Anxiety for 30 Days, #30 TAB Venlafaxine HCl (Venlafaxine HCl ER) 75 Mg Capcr 150 MG PO DAILY Admission Information HPI (per Admitting provider): Patient seen with Dr. Turner 66 year old female who presents to the ER with palpitations and a near syncope. 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 She reports symptoms lasted for about an hour. She reports intermittent episodes of palpitations over the past couple of years. She reports under going a stress test several years ago that was negative. While in the ED, she is reporting left sided chest discomfort that is radiating into the left shoulder. She was given nitro and is currently chest pain free. Of note, patient walks 1 mile before work every morning without difficulty. She denies any associated shortness of breath. She denies any recent illnesses, fever, or chills. No abdominal pain, vomiting, or diarrhea. She denies any urinary symptoms. In the ER, patient's EKG shows minimal (< 1mm) ST depressions laterally that improved on 2nd EKG once HR slowed down. Trop 0.026 -> POC trop 0.24 -> 0.428. Patient was given full dose ASA. . Physical Exam (per Admitting): General- oriented x 3, not in distress, speaks in sentences with no effort Head- atraumatic Eyes- EOMI, anicteric ENT- oropharynx clear Neck- supple, no JVD, no adenopathy, no thyromegaly Lungs- clear breath sounds bilaterally Heart- regular rhythm; no murmur, normal rate Abdomen- normal bowel sounds, soft, nontender Extremities- no pretibial edema, no calf tenderness; peripheral pulses intact Neuro- alert, oriented x 3; no gross focal neuro deficits Skin- warm & dry . Hospital Course PALPITATIONS No arrhythmias noted on smog technician. Consider outpatient cardiac event monitor if symptoms recur. CHEST DISCOMFORT Minimal elevation of troponin. No wall motion abnormalities on rest echo. No stress-induced ischemia on stress echo. HYPERTENSION Severe hypertensive response to exercise. Echo showed mild concentric LVH. Bradycardiac at times. Amlodipine 2.5 mg daily recommended. VTE PROPHYLAXIS Received IV heparin. DISPOSITION Discharge to home. Internal Medicine follow-up with Dr. Montana. Discharge Instructions Date of Service Apr 06, 2017. Admission Reason for Admission: lightheadedness, palpitations . Discharge Discharge Diagnosis / Problem: high blood pressure with exercise Discharge Goals Goal(s): Improve function Activity Recommendations Activity Limitations: resume your previous activity . Instructions / Follow-Up Instructions / Follow-Up APPOINTMENTS: INTERNAL MEDICINE 04/12/2017 4:20 PM Bi Montana, DO INSTRUCTIONS: There was no sign of a heart attack. Your blood pressure was pretty high during the stress test. Dr. Mai recommends starting amlodipine (Norvasc) for blood pressure. Prescription sent to your pharmacy. If you continue to have palpitations or spells of dizziness, let Dr. Montana know. He can order an outpatient cardiac event monitor for you. Seek medical attention if you have: * chest pain or trouble breathing * severe / prolonged palpitations * severe dizziness or lightheadedness * any unanswered questions or concerns Call 911 if symptoms are severe. Call if you have any questions or problems. My cell # is [phone]. You can also reach a [facility] hospitalist on duty at [facility] 24 hours a day by calling [phone]. Please take good care of yourself. Joss Post . Current Hospital Diet Patient's current hospital diet: AHA Diet (Heart Healthy) Discharge Diet Recommended Diet: AHA Diet (Heart Healthy) Pending Studies Studies pending at discharge: no Laboratory Results Hemoglobin A1c Test 04/05/17 08:11 Range/Units Estimated Average Glucose 114 mg/dl Hemoglobin A1c 5.6 4.5-5.6 % Lipid Panel Test 04/06/17 04:02 Range/Units Triglycerides Level 107 0-150 mg/dl Cholesterol Level 172 0-200 mg/dl HDL Cholesterol 48 mg/dl Cholesterol/HDL Ratio 3.6 LDL Cholesterol, Calculated 103 mg/dl Medical Emergencies . Who to Call and When: Medical Emergencies: If at any time you feel your situation is an emergency, please call 911 immediately. . Non-Emergent Contact Non-Emergency issues call your: Primary Care Provider, Hospital Doctor . . "Provider Documentation" section prepared by Joss Post. . VTE Core Measure Inpt VTE Proph given/why not?: Unfractionated heparin SQ . Additional Copies To Bi Montana D.O.
== END 2017-04-06 16:45 | disposition home or self-care (01) ==
LOC: EDBD 08:35 → C.EDA 08:36 → C.2T 12:11 → ENRESERV 12:28 → EDBEDREQ 12:35
PROVIDERS: ADMIT Internal Medicine; ATTEND Hospitalist
DX: R00.2 Palpitations (principal); I10 Essential (primary) hypertension; R42 Dizziness and giddiness; R55 Syncope and collapse; Z87.891 Personal history of nicotine dependence; Z79.82 Long term (current) use of aspirin; Z82.49 Family history of ischemic heart disease and other diseases of the circulatory system

== ENCOUNTER → 2017-08-21 | Outpatient (CLI) | payer BC ==
[~2017-08-21] MED LIST changes: +AMLO2.5T PO; +ASPI81TA28 PO; +CALC600T9 PO; +EFFSR/75 PO; -EFFSR150 PO; +LORA0.5T12 PO; -LRT5 PO
--- NOTE | 2017-08-22 07:44 | MAMMOGRAPHY REPORT ---
BILATERAL DIGITAL SCREENING MAMMOGRAM TOMOSYNTHESIS WITH CAD: 08/21/2017 CLINICAL HISTORY: Routine screening. Patient has no complaints. TECHNIQUE: Breast tomosynthesis in addition to standard 2D mammography was performed. Current study was also evaluated with a Computer Aided Detection (CAD) system. COMPARISON: Comparison is made to exams dated: 08/17/2016 mammogram, 01/25/2015 mammogram, 09/19/2012 mammogram, 08/23/2011 mammogram, 08/15/2010 mammogram - [facility], and 04/12/2009. BREAST COMPOSITION: The tissue of both breasts is heterogeneously dense, which may obscure small mas ses. FINDINGS: There are stable benign rim calcifications and punctate macro calcifications in the breast. An asymmetry in the medial right breast appears similar on all available prior mammograms dating ba ck to at least 04/12/2009, therefore likely benign. There is no evidence of architectural distortion on the tomosynthesis images. Overall, no new suspicious mass, architectural distortion or cluster of microcalcifications is seen. IMPRESSION: ACR BI-RADS CATEGORY 2: BENIGN There is no mammographic evidence of malignancy. A 1 year screening mammogram is recommended. The pa tient will receive written notification of the results. Approximately 10% of breast cancers are not detected with mammography. A negative mammographic report should not delay biopsy if a clinically suggestive mass is present. Heidi Sanchez M.D. ay/:08/21/2017 17:01:21 Agriculture Extension Specialist: Tigist FOY(Kay)([place])([place]), [facility] letter sent: Normal 1/2 BI-RADS Code: ACR BI-RADS Category 2: Benign
== END | disposition home or self-care (01) ==
LOC: C.MAMM 08:35
PROVIDERS: ATTEND Nurse Practitioner Adult Health
DX: Z12.31 Encounter for screening mammogram for malignant neoplasm of breast (principal)

== ENCOUNTER 2018-01-14 08:18 | Emergency (ER) | payer BC ==
[~2018-01-14] VITALS: Ht 165.1 cm; Wt 80.4 kg
[2018-01-14 08:23] VITALS: Ht 165.1 cm; Wt 80.4 kg
[2018-01-14] MEDS ORDERED: OXYCODONE/ACETAMINOPHEN 5-325 TAB PO ONE (08:45)
--- NOTE | 2018-01-14 09:05 | DIAGNOSTIC IMAGING REPORT ---
R ANKLE MIN 3 VIEWS ROUTINE, R FOOT MIN 3 VIEWS ROUTINE CLINICAL HISTORY: fall getting out of bed; R ankle and bilateral foot pain COMPARISON STUDY: None. FINDINGS: Soft tissue swelling within the right ankle. Nondisplaced transverse fracture within the distal fibula. There is also nondisplaced oblique fracture within the medial malleolus. No dislocation. Cortical step-off at the head of the proximal phalanx of the fifth toe. This favors an old, healed fracture. IMPRESSION: 1. Nondisplaced bimalleolar right ankle fracture. No dislocation. 2. Deformity within the proximal phalanx of the fifth toe which favors an old, healed fracture. Recommend correlation for pain at this location to exclude an acute injury. Electronically signed by: Dwaine Kerr M.D. 01/14/2018 9:03 AM Dictated Date/Time: 01/14/2018 8:57 AM
--- NOTE | 2018-01-14 09:14 | DIAGNOSTIC IMAGING REPORT ---
L FOOT MIN 3 VIEWS ROUTINE HISTORY: 67 years-old Female same acute left-sided foot pain status post fall COMPARISON: Right foot and ankle radiographs of same day TECHNIQUE: 3 views of the left foot FINDINGS: Bones appear mildly demineralized. Mild degenerative changes are noted about the interphalangeal joints. Type I accessory navicular. Note is made of an peroneum. Small Achilles and moderate plantar and dorsiflex above the calcaneus. No acute fracture or subluxation identified. Mild soft tissue swelling about the ankle. No opaque foreign body. IMPRESSION: Mild soft tissue swelling about the ankle without acute fracture or dislocation. The above report was generated using voice recognition software. It may contain grammatical, syntax or spelling errors. Electronically signed by: Sekou Cotter M.D. 01/14/2018 9:13 AM Dictated Date/Time: 01/14/2018 9:10 AM
[2018-01-14] MEDS ORDERED: OXYC-57 PO (09:58)
[2018-01-14 10:08] VITALS: BP 134/74; PULSE 89; TEMP 36.7; O2SAT 96
--- NOTE | 2018-01-14 16:30 | EMERGENCY ROOM VISIT NOTE ---
ED Visit Note First contact with patient: 08:21 Chief Complaint: Right ankle and foot pain and left foot pain. History of Present Illness: is a 67-year-old white female who is brought into the ED via ambulance complaining of right ankle and foot pain and left foot pain. Patient reports she fell out while getting out of bed last night at approximately 11 PM. She reports she twisted her ankle and then fell onto her lower legs. She reports she was not experiencing any lightheadedness or dizziness before the fall, she did not strike her head at the time of the fall or have a loss of consciousness and she has not had any signs of head injury since the fall. Upon awaking this morning she reports her pain was severe that she could not bear weight and have to crawl on her hands and knees. Currently she is complaining of right ankle pain over the lateral and medial malleolus area. She rates her discomfort 10/10 with prominence over the lateral malleolus. She reports she has a shooting pain up her leg to the level of her hip. Her pain worsens with palpation, all movements of the ankle, weightbearing and ambulation. She has not identified any alleviating factors related to the pain. She has not had any medications for her pain prior to arrival at the hospital. Additionally she is complaining of right foot pain over the second, third and fourth metacarpal and MCP joints. This pain as a pressure sensation. She rates her discomfort 8/10. Her pain is nonradiating. Her pain worsens with palpations, extension of the toes at the MCP joint, weightbearing and ambulation. Additionally she is complaining of left foot pain over the first MCP joint and throughout the great toe. She describes this as a throbbing pain. She rates her discomfort 8/10. Her pain is nonradiating. Her pain worsens with palpation , flexion and extension of the MCP joint, weightbearing and ambulation. Nursing reports that the patient was also complaining of knee pain but this was the shooting pain she described as noted above. Patient denies lumbar back pain, hip pain, thigh pain, leg weakness/numbness/ tingling, previous significant injuries or surgeries to the ankles and feet. Review of Systems: As noted above in history of present illness. 8 body systems were reviewed and found to be negative as noted above. Past Medical History: Tachycardia, hypertension. Current Medications: Norvasc sick, aspirin, calcium and vitamin D, lorazepam, venlafaxine. Allergies to Medications: Patient denies Social History: Patient is currently employed; she lives with her and feels safe in her home environment; she denies tobacco and alcohol use Physical Examination: Vital Signs: Date Time Temp Pulse Resp B/P (MAP) Pulse Ox O2 Delivery O2 Flow Rate FiO2 01/14/18 10:08 36.7 89 18 134/74 96 01/14/18 10:07 89 18 134/74 01/14/18 08:23 36.7 66 18 148/87 96 Room Air GENERAL: 67-year-old female in moderate distress due to pain, nontoxic-appearing , afebrile and hemodynamically stable. NEUROLOGICAL: Awake, alert and oriented to person, place and time. Answering questions appropriately and following commands. Good hand eye coordination. No focal motor or sensory deficits. SKIN: Warm, dry and pink. No soft tissue open trauma noted. LEFT LOWER EXTREMITY: No gross bony deformity. No tenderness in the hip, thigh , and lower leg. No tenderness throughout the ankle or heel. Moderate tenderness over the third through fifth metatarsals and MCP joints. There is a contusion in this area. I do not appreciate any bony deformity or crepitus. She was able to wiggle her toes and had plantarflexion and dorsiflexion of the ankle. Distal pulses, sensation to light touch and capillary refill were intact. RIGHT LOWER EXTREMITY: No gross bony deformity. No tenderness over the hip, thigh or lower leg. Moderate tenderness and swelling over both the lateral and medial malleoli with moderate swelling with prominence over the lateral malleolus. No ecchymosis present. Difficult to do ligamentous testing, range of motion and muscle strength due to her pain and swelling. She was able to wiggle her toes. Distal pulses, and sensation to light touch and capillary refill was brisk. ED Course: Patient is assessed as noted above. Patient's medication list was reviewed. Patient was given ice and 1 Percocet 5/325 mg tablet was given for pain. Right Ankle and Foot X-Rays: Were read by myself and the radiologist showing a nondisplaced bimalleolar ankle fracture without dislocation. Radiologist notes a deformity within the proximal phalanx of the fifth toe and there is no correlation of pain in this area and it was felt to be a healed fracture. Left Foot X-Rays: Were read by myself and the radiologist showing no acute fractures or dislocations. There was mild swelling about the ankle. Patient was placed in an Ortho-Glass stirrup splint and educated on walker use. Patient's case was consulted with Dr. Tyshawn Enciso, data collection specialist; Dr. Enciso suggested that the patient come immediately to his office for further evaluation and care. Patient was educated about today's findings and instructed on her treatment plan ; she verbalized understanding and agreement with this plan. Clinical Impression: Right bimalleolar ankle fracture. Left foot contusion. Status post fall. Disposition: Patient discharged home in stable condition; prior to departure she was reassessed and subjectively reported she was feeling much better. Plan: Comfort measures were discussed with the patient including rest, ice, elevation , splint and walker use and a sliding pain medication scale of ibuprofen, acetaminophen and Percocet; her name was checked in the state database and no red flags were noted and she was given appropriate narcotic precautions. Patient was encouraged to immediately go to Dr. Enciso's office after being discharged from the ED for specialty care and treatment. Patient was encouraged return the ED as needed for worsening/uncontrolled pain, uncontrolled swelling, leg/foot weakness/numbness/tingling or any new/ concerning symptoms.
== END 2018-01-14 10:09 | disposition home or self-care (01) ==
LOC: EDBD 08:18 → C.EDB 08:19
DX: S82.844A Nondisplaced bimalleolar fracture of right lower leg, initial encounter for closed fracture (principal); S90.32XA Contusion of left foot, initial encounter; W06.XXXA Fall from bed, initial encounter; Y92.013 Bedroom of single-family (private) house as the place of occurrence of the external cause; I10 Essential (primary) hypertension; R00.0 Tachycardia, unspecified; Z79.82 Long term (current) use of aspirin; Z79.899 Other long term (current) drug therapy